=== PATIENT | female | born 1940 | race Caucasian/White ===

== ENCOUNTER 2018-11-19 12:09 | Emergency (ER) | payer MEDICARE ==
[~2018-11-19] VITALS: Ht 154.9 cm; Wt 58.1 kg
[2018-11-19] MEDS ORDERED: ipratropium/albuterol 3ml nebule NEB ONE (12:35)
[2018-11-19 12:50] LABS: ABG BASE EXCESS 1.3 mmol/L (-2.0-3.0); ABG OXYGEN SATURATION 94.2 % (95-98); ABG PCO2 (T) 28.6 mmHg (32.0-45.0); ABG PH (T) 7.524 (7.350-7.450); ABG PO2 (T) 62.6 mmHg (83-108); ALLEN'S TEST Positive; FCOHb 0.6 % (0.5-1.5); FLOW 2 L/min; FMetHb 0.3 % (0.3-1.12); FO2Hb 93.4 % (94-100)
[2018-11-19 12:56] LABS: BASOPHILS # (AUTO) 0.1 X10'3 (0-0.2); BASOPHILS % (AUTO) 0.7 % (0-1); EOSINOPHILS # (AUTO) 2.1 X10'3 (0-0.9); EOSINOPHILS % (AUTO) 22.4 % (0-6); HEMOGLOBIN 13.6 g/dl (12.0-16.0); LYMPHOCYTES # (AUTO) 2.4 X10'3 (1.1-4.8); LYMPHOCYTES % (AUTO) 25.4 % (21-51); MEAN CORPUSCULAR HEMOGLOBIN 31.5 PG (27.0-31.0); MEAN CORPUSCULAR HGB CONC 34.9 g/dL (33.0-36.5); MEAN CORPUSCULAR VOLUME 90.1 FL (78-98); MEAN PLATELET VOLUME 7.7 FL (7.4-10.4); MONOCYTES # (AUTO) 0.8 X10'3 (0-0.9); MONOCYTES % (AUTO) 8.7 % (2-12); NEUTROPHILS % (AUTO) 42.8 % (42-75); PLATELET COUNT 416 X10'3 (140-440); RED BLOOD COUNT 4.33 X10'6 (4.20-5.60); RED CELL DISTRIBUTION WIDTH 15.4 % (11.5-14.5); WHITE BLOOD COUNT 9.2 X10'3 (4.5-11.0)
[2018-11-19 13:14] LABS: D-DIMER 0.39 MG/L FEU (0-0.50)
[2018-11-19 13:19] LABS: ALANINE AMINOTRANSFERASE 19 U/L (12-78); ALBUMIN 3.7 G/DL (3.4-5.0); ALBUMIN/GLOBULIN RATIO 0.8 (1.1-1.5); ALKALINE PHOSPHATASE 65 IU/L (46-116); ANION GAP 11 (8-16); ASPARTATE AMINO TRANSFERASE 16 U/L (10-37); BILIRUBIN,TOTAL 0.4 MG/DL (0.1-1.0); BLOOD UREA NITROGEN 12 MG/DL (7-18); BUN/CREATININE RATIO 14.1 (6.6-38.0); CALCIUM 9.6 MG/DL (8.5-10.1); CHLORIDE 99 MMOL/L (99-107); CREATININE 0.85 MG/DL (0.40-0.90); GLUCOSE 105 MG/DL (70-104); POTASSIUM 3.7 MMOL/L (3.5-5.1); SODIUM 135 MMOL/L (135-145); TOTAL CARBON DIOXIDE 25.5 MMOL/L (24-32); TOTAL PROTEIN 8.3 G/DL (6.4-8.2); eGFR 65 ML/MIN
[2018-11-19] MEDS ORDERED: levoFLOXACIN 750MG TABLET PO ONE (13:55)
[2018-11-19] MEDS ORDERED: LEVO500T2 PO (13:57)
[2018-11-19] MEDS ORDERED: PRED20TA PO (13:57)
[2018-11-19] MEDS ORDERED: predniSONE 20 mg tablet PO ONE (14:00)
[2018-11-19 14:03] VITALS: BP 178/109
--- NOTE | 2018-11-19 14:15 | NUR ---
[employer] CALLED, 20 MINUTE ETA
== END 2018-11-19 14:15 | disposition home or self-care (01) ==
LOC: ER 12:09
DX: J44.1 Chronic obstructive pulmonary disease with (acute) exacerbation (principal); Z79.2 Long term (current) use of antibiotics; Z79.899 Other long term (current) drug therapy
CPT/HCPCS: 36415; 36600; 71045; 80053; 82803; 83605; 83880; 84484; 85018; 85025; 85379; 85610; 93005; 94640; 94760; 99284; J7512